=== PATIENT | female | born 1975 | race Two or more races ===

== ENCOUNTER 2024-06-16 16:16 | Emergency (ER) | payer OTHER ==
[~2024-06-16] VITALS: Ht 170.2 cm; Wt 95.3 kg
[2024-06-16] MEDS ORDERED: GRALISE600 MG PO (16:54)
[2024-06-16] MEDS ORDERED: CLONAZEPAM0.125 MG PO (16:54)
[2024-06-16] MEDS ORDERED: RESTORIL7.5 MG PO (16:54)
[2024-06-16] MEDS ORDERED: DEXAMETHASONE SODIUM PHOSPHATE 4 MG/ML VIAL IM STA (20:01)
[2024-06-16] MEDS ORDERED: ORPHENADRINE CITRATE 30 MG/ML AMPUL IM STA (20:01)
[2024-06-16] MEDS ORDERED: TRAMADOL HCL 50 MG TABLET PO ONE (23:45)
== END 2024-06-17 00:29 | disposition home or self-care (01) ==
LOC: ER 16:18
DX: S82.61XA Displaced fracture of lateral malleolus of right fibula, initial encounter for closed fracture (principal); W10.8XXA Fall (on) (from) other stairs and steps, initial encounter; Y93.89 Activity, other specified; Y92.89 Other specified places as the place of occurrence of the external cause; Y99.8 Other external cause status; Z88.0 Allergy status to penicillin; Z88.6 Allergy status to analgesic agent
CPT/HCPCS: 29505; 72082; 73030; 73610; 96372; 99283; J1100; J2360